=== PATIENT | female | born 1980 | race African-American/Black ===

== ENCOUNTER 2020-02-29 04:29 | Emergency (ER) | payer OTHER ==
[~2020-02-29] VITALS: Ht 157.5 cm; Wt 117.9 kg
[2020-02-29 04:35] VITALS: BP 150/84
[2020-02-29] MEDS ORDERED: PENICILLIN VK500 MG PO (04:52)
[2020-02-29] MEDS ORDERED: LORCET 5-325 M1 EACH PO (04:52)
== END 2020-02-29 04:58 | disposition home or self-care (01) ==
LOC: M.ERS 04:29
DX: S02.5XXA Fracture of tooth (traumatic), initial encounter for closed fracture (principal); Z90.49 Acquired absence of other specified parts of digestive tract; X58.XXXA Exposure to other specified factors, initial encounter; Y93.9 Activity, unspecified; Y92.89 Other specified places as the place of occurrence of the external cause; Y99.8 Other external cause status